=== PATIENT | female | born 1935 | race American Indian/Alaskan Native ===

== ENCOUNTER 2021-04-30 17:39 | Emergency (ER) | payer MEDICARE ==
[2021-04-30 23:28] VITALS: BP 141/78
--- NOTE | 2021-05-01 00:39 | Emergency Department Report ---
HPI - General Chief Complaint: Hyperglycemia Time Seen by Provider: 05/01/21 00:28 - HPI HPI: MSE 6 The patient is an 85-year-old female present with a chief complaint of hyperglycemia. Patient states she came to the emergency department today because her blood sugar "spiked" this morning up to 250. Patient states she has been compliant with her glipizide but believes she ate too many pieces of fruit this morning. The patient states she felt like she was "high" but now feels much better. ED Past Medical Hx - Past Medical History Previous Medical History?: Yes Hx Hypertension: Yes Hx Diabetes: Yes Hx Arthritis: Yes - Surgical History Past Surgical History?: Yes Additional Surgical History: hysterectomy. myomectomy. tonsillectomy - Family History Family history: no significant - Social History Smoking Status: Never Smoker Substance Use Type: None - Medications Home Medications: Home Medications Medication Instructions Recorded Confirmed Last Taken Type ALPRAZolam [Xanax TAB] 0.5 mg PO TID PRN #20 tab 12/14/13 Unknown Rx Albuterol Mdi (or & Nicu Only) 2 puff IH QID PRN 12/14/13 12/14/13 Unknown History [Proair] Aspirin [Aspirin BABY CHEW TAB] 81 mg PO QDAY 12/14/13 12/14/13 12/14/13 08:00 History Benzonatate [Tessalon Perles] 200 mg PO TID PRN 12/14/13 12/14/13 Unknown History Furosemide [Lasix] 40 mg PO DAILY 12/14/13 12/14/13 12/14/13 15:00 History Losartan [Cozaar] 100 mg PO QDAY 12/14/13 12/14/13 12/14/13 08:00 History Metformin HCl [Metformin HCl ER] 500 mg PO BID 12/14/13 12/14/13 12/14/13 08:00 History Omeprazole [Prilosec] 20 mg PO QDAY 12/14/13 12/14/13 12/14/13 08:00 History Pitavastatin Calcium [LiVALO] 2 mg PO QDAY 12/14/13 12/14/13 12/14/13 08:00 History carvediloL [Coreg] 25 mg PO BID 12/14/13 12/14/13 12/14/13 08:00 History traMADoL [Ultram] 50 mg PO BID PRN 12/14/13 12/14/13 Unknown History ED Review of Systems ROS: Stated complaint: HBP Other details as noted in HPI Constitutional: no symptoms reported Eyes: denies: eye pain ENT: denies: throat pain Respiratory: no symptoms reported Cardiovascular: denies: chest pain Endocrine: other (Hyperglycemia) Gastrointestinal: denies: abdominal pain Genitourinary: denies: dysuria Musculoskeletal: denies: back pain Neurological: denies: headache Physical Exam - Physical Exam Vital Signs: Vital Signs 04/30/21 23:20 Temperature 97.7 F Pulse Rate 56 L Respiratory 16 Rate Blood Pressure 141/78 [Right] O2 Sat by Pulse 100 Oximetry Physical Exam: GENERAL: The patient is well-developed well-nourished female sitting in chair not appearing to be in acute distress HEENT: Normocephalic. Atraumatic. Extraocular motions are intact. Patient has moist mucous membranes. NECK: Supple. Trachea midline CHEST/LUNGS: Clear to auscultation. There is no respiratory distress noted. HEART/CARDIOVASCULAR: Regular. There is no tachycardia. There is no gallop rub or murmur. ABDOMEN: Abdomen is soft, nontender. Patient has normal bowel sounds. There is no abdominal distention. SKIN: There is no rash. There is no edema. There is no diaphoresis. NEURO: The patient is awake, alert, and oriented. The patient is cooperative. The patient has no focal neurologic deficits. The patient has normal speech. GCS 15 MUSCULOSKELETAL: There is no evidence of acute injury. ED Course Vital Signs 04/30/21 23:20 Temperature 97.7 F Pulse Rate 56 L Respiratory 16 Rate Blood Pressure 141/78 [Right] O2 Sat by Pulse 100 Oximetry ED Medical Decision Making - Lab Data Result diagrams: 05/01/21 00:57 05/01/21 00:57 Laboratory Tests 05/01/21 05/01/21 05/01/21 00:57 00:57 00:57 WBC 4.7 RBC 4.40 Hgb 11.1 Hct 35.7 MCV 81 MCH 25 L MCHC 31 RDW 16.6 H Plt Count 132 L Lymph % (Auto) 20.9 [place] % (Auto) 11.0 H Eos % (Auto) 4.8 H Baso % (Auto) 1.2 Lymph # (Auto) 1.0 L [place] # (Auto) 0.5 Eos # (Auto) 0.2 Baso # (Auto) 0.1 Seg Neutrophils % 62.1 Seg Neutrophils # 2.9 VBG pH 7.357 Sodium 141 Potassium 5.0 Chloride 106.4 Carbon Dioxide 23 Anion Gap 17 BUN 45 H Creatinine 2.0 H Estimated GFR 29 BUN/Creatinine Ratio 23 Glucose 106 H Calcium 8.7 - Differential Diagnosis Hyperglycemia, DKA Critical care attestation.: If time is entered above; I have spent that time in minutes in the direct care of this critically ill patient, excluding procedure time. ED Disposition Clinical Impression: Hyperglycemia, Renal insufficiency Disposition: 01 HOME / SELF CARE / HOMELESS Is pt being admited?: No Does the pt Need Aspirin: No Condition: Stable Additional Instructions: Return to the emergency department should you develop worsening symptoms, inability to tolerate food or liquids, high fever or any other concerns Referrals: DONOVAN LEAL MD [Staff Physician] - 3-5 Days (Dr. Leal is a director [employer] [facility]. Please follow-up with him for further evaluation of your kidney) Time of Disposition: 01:44
[2021-05-01 01:19] LABS: Basophils # (Auto) 0.1 K/mm3 (0.0-0.1); Basophils % (Auto) 1.2 % (0.0-1.8); Eosinophils # (Auto) 0.2 K/mm3 (0.0-0.4); Eosinophils % (Auto) 4.8 % (0.0-4.3); Hematocrit 35.7 % (30.3-42.9); Hemoglobin 11.1 gm/dl (10.1-14.3); Lymphocytes % (Auto) 20.9 % (13.4-35.0); Mean Corpuscular HGB Conc 31 % (30-34); Mean Corpuscular Volume 81 fl (79-97); Monocytes # (Auto) 0.5 K/mm3 (0.0-0.8); Platelet Count 132 K/mm3 (140-440); Red Cell Distribution Width 16.6 % (13.2-15.2)
[2021-05-01 01:33] LABS: Calcium 8.7 mg/dL (8.4-10.2)
== END 2021-05-01 02:41 | disposition home or self-care (01) ==
LOC: ED 17:39
DX: E11.65 Type 2 diabetes mellitus with hyperglycemia (principal); N28.9 Disorder of kidney and ureter, unspecified; I10 Essential (primary) hypertension; M19.90 Unspecified osteoarthritis, unspecified site; Z90.710 Acquired absence of both cervix and uterus; Z90.89 Acquired absence of other organs; Z88.5 Allergy status to narcotic agent; Z88.2 Allergy status to sulfonamides; Z88.8 Allergy status to other drugs, medicaments and biological substances; Z79.899 Other long term (current) drug therapy
CPT/HCPCS: 36415; 80048; 82805; 85025; 99283